=== PATIENT | female | born 1985 | race Caucasian/White ===

== ENCOUNTER 2017-01-28 23:00 | Inpatient (IN) ==
[~2017-01-28 23:00] MED LIST: Famotidine 20 MG/2 ML VIAL IVP PRN; Naloxone 0.4 MG/ML INJ IVP PRN
[2017-01-28] MEDS ORDERED: *HR* Nalbuphine 20 MG/ML AMPUL IVP PRN (23:05)
[2017-01-28] MEDS ORDERED: Ringers Solution, Lactated 1,000 ML IVC SCH (23:15)
--- NOTE | 2017-01-28 23:25 | OB/GYN History & Physical ---
Date of Encounter: 01/28/17 Time of Encounter: 23:12 Assessment and Plan (1) 38 weeks gestation of Current visit: Yes Status: Acute -Patient desires vaginal delivery and epidural. Dr. Jewell is OBGYN -Uncomplicated and previous uncomplicated -Family history of [place]. Denies HTN during . No medications -Will continue to follow BP. Most likely elevated from pain. If remains elevated , consider preeclampsia workup. Plan -Start IV fluids, monitor BP, FHR, toco -Continue cervical checks q2h, CBC, urine. -Hold off on PIH labs -Nubain for pain and clear liquid diet History of Present Illness Chief complaint: Vaginal Delivery HPI: Ms. Dudley 31F, , 38w3d admitted for vaginal delivery. Patient having more frequent contractions. She is currently 5cm and 90% effaced. Other than contraction pain, she has no other complications. Denies HTN during her . Denies smoking, drinking or drug use. Dr. Jewell is OBGYN. A positive. GBS negative Past Med Surg Social Fam HX - Past Medical History Medical history: no medical history Psychiatric history: no psych history - Past Surgical History Surgical History: other - Social History Smoking Status: Current every day smoker Packs per day: 1/ Smokeless Tobacco Status: No Alcohol use: none Drug use: none - Family History Mother Adopted: No Living Status: Still Living Hx Family Cardiac Disorders: No Hx Family Respiratory Disorders: No Hx Family Cancer: No Hx Family GI Disorders: No Hx Family Endocrine Disorder: No Hx Family Neuromuscular Disorders: No Hx Family Neurologic Disorders: No Hx Family HEENT Disorders: No Hx Family Autoimmune Disorders: Yes (maksim's disese runs on mother's side of family, but not tested) Obstetrical History - Pregnancies : 2 Para: 1 Term: 1 Livin - History/Complications History/Complications: none Medications and Allergies Acetaminophen [Tylenol] 650 mg PO Q6HR PRN 07/26/15 [History] Vit/FA 1 tab PO DAILY #60 tablet 07/28/15 [Rx] Allergies No Known Allergies Allergy (Verified 07/26/15 07:54) Exam - Constitutional Constitutional: well developed, well nourished, no acute distress, average body habitus - HEENT HEENT: Normocephaly, Mucus Membranes Moist - Lungs Respiratory exam: CTAB - Cardiovascular Cardiovascular exam: RRR, +S1, +S2 - Abdomen Abdomen: Present: gravid, non tender - Extremities Extremities exam: normal inspection - Vagina Vagina: Present: normal moisture - Cervix Dilation: 5 (5cm per nurse) Effacement: 90 (per nurse) - Uterus Uterus exam: Present: normal size, normal contour Results All other labs normal.
[2017-01-28 23:29] LABS: Basophils # 0.1 K/mcL (0.0-0.2); Basophils % 0.4 %; Eosinophils # 0.1 K/mcL (0.0-0.6); Eosinophils % 0.4 %; Hematocrit 41.1 % (35.3-44.9); Hemoglobin 13.9 g/dL (11.5-15.4); Immature Granulocytes % 1.6 % (0-4); Immature Platelets 4.6 % (1.1-6.1); Lymphocytes # 3.5 K/mcL (0.6-4.6); Lymphocytes % 24.5 %; Mean Corpuscular HGB Conc 33.8 g/dL (31.6-35.5); Mean Corpuscular Volume 91.7 fL (83.0-100.0); Monocytes # 0.7 K/mcL (0.0-1.3); Neutrophils # 9.7 K/mcL (1.6-8.9); Platelet Count 320 K/mcL (140-400); Red Blood Count 4.48 M/mcL (3.82-4.97); Red Cell Distribution Width 13.8 % (11.5-14.5); Segmented Neutrophils % 68.1 %
[2017-01-28] MEDS ORDERED: Epidural Premix (fent/bupiv) 110 ML EP SCH (23:45)
[2017-01-28] MEDS ORDERED: *HR* Ropivacaine/PF 0.2% 10 ML AMPUL EP ONE (23:56)
[2017-01-28] MEDS ORDERED: *HR* FentaNYL (PF) 100 MCG/2 ML VIAL EP ONE (23:56)
[2017-01-28] MEDS ORDERED: EPHEDrine 50 MG/ML VIAL IVP PRN (23:56)
[2017-01-28] MEDS ORDERED: Ringers Solution, Lactated 500 ML IVC ONE (23:56)
--- NOTE | 2017-01-28 23:56 | Anesthesia Evaluation PreOp ---
Date of Encounter: 01/28/17 Time of Encounter: 23:50 - Past History Planned Operation: Labor Epidural Cardiac History: Denies any Significant Hx Pulmonary History: Denies Any Significant HX TEST CLERK History: Denies Any Significant HX Other Medical History: Denies Any Significant HX Anesthesia History: No Prior Anesthetic Complications, Past Anesthesia (Tonsils) : Yes Alcohol Use: none Drug use: none Medications and Allergies Acetaminophen [Tylenol] 650 mg PO Q6HR PRN 07/26/15 [History] Vit/FA 1 tab PO DAILY #60 tablet 07/28/15 [Rx] Allergies No Known Allergies Allergy (Verified 07/26/15 07:54) - Meds/Allergy Pre-op Review Medications Reviewed: Yes Allergies Reviewed: Yes Beta Blockers on Current Med List: No Anesthesia Results - Labs 01/28/17 23:21 Anesthesia Exam 142/85, 90, 98% Height: 1.65m Weight: 78.8kg NPO (# of Hours): >4hr Pain Scale: 10 Pain Scale Used: Numeric (1 - 10) - HEENT Pupil (Motor): Pupils equal Mallampati: II Teeth: Normal Oral Opening: Greater than 3 - TEST CLERK LOC: Oriented TEST CLERK Motor: Normal RUE, Normal LUE, Normal RLE, Normal LLE, Normal Face TEST CLERK Sensory: Normal: RUE, LUE, RLE, LLE, Face - Cardiac Rhythm: Regular Murmur: None JVD: No Carotid Bruit: No - Pulmonary Breath Sounds: bilateral Clear Respiratory Effort: Symmetrical Anesthesia Assess/Plan ASA Score: 2 Modified [place] Scale for Level of Consciousness: Cooperative, oriented, and tranquil Anesthetic Plan: Regional Autologous Blood: Yes Monitoring Plan: Standard Monitors Recovery Plan: Other
[2017-01-28] MEDS ORDERED: *HR* FentaNYL (PF) 100 MCG/2 ML VIAL ONE (23:58)
[2017-01-28] MEDS ORDERED: *HR* Ropivacaine/PF 0.2% 10 ML AMPUL ONE (23:58)
[2017-01-28] MEDS ORDERED: Epidural Premix (fent/bupiv) 110 ML EP ONE (23:58)
--- NOTE | 2017-01-29 00:20 | Anesthesia Procedures ---
Date of Encounter: 01/29/17 Time of Encounter: 00:02 Procedures: Anesthesia - Epidural/Spinal Patient ID/Chart reviewed: Yes Patient examined: Yes OB Eval: Gestational age: 38.3 OB Eval: : 2 OB Eval: Hx Para: 1 OB Eval: Contractions: Non-stressed pattern Consent Obtained: Yes Supplemental Oxygen: None/Room Air Site Prep: Aseptic Technique, Sterile prep and drape, 0.5% Chlorhexidine/Alcohol Patient position: upright Local Anesthetic: Lidocaine 1% Amount of Local Anesthetic used: 2.5 Touhy Needle Gauge: 18 Touhy Needle Depth (cm): 7 Catheter Depth at Skin (cm): 13 Test Dose (1.5% Lido + Epi): Volume given (mls): 5 Test Dose Result: Negative Loading Dose: Fentanyl (mcg): 100 Loading Dose: Other: Ropivacaine 0.2% 10mL Loading Dose Administered: Thru Catheter Infusion Med: 0.125% Bupivacaine w/ 2 mcg/ml Fentanyl Infusion Rate (mls/hr): 14 (Bolus 4mL q15min; Max 3/hr) Catheter Secured in Place: Tegaderm, Tape Interspace Used: L2-L3 Loss of Resistance (YESSY): Yes Blood: No CSF: No Paresthesia: No Procedure: x1 attempt. Patient tolerated well. Vitals + FHT's: VSS and FHR stable throughout procedure. See nursing documentation.
[2017-01-29] MEDS ORDERED: EPHEDrine 50 MG/ML VIAL ONE (00:35)
[2017-01-29] MEDS ORDERED: Oxytocin 20 units/ LR 1000 mL 20 UNIT/1,000 ML BAG IVC ONE ×3 (03:41→06:23)
--- NOTE | 2017-01-29 04:08 | OB/GYN Procedure Note ---
Delivery - Delivery Date: 01/29/17 Provider: Hudson Adame Intrapartum events: none Delivery induction: none Delivery augmentation: rupture of membranes Delivery monitor: external FHT, external uterine Anesthesia: epidural Estimated Blood Loss: 100 - Infant (s) A Delivery Date: 01/29/17 Infant Delivery Time: 03:37 Presentation: vertex Position: NANCY Route of delivery: Gender: Male Viability: Viable Pounds: 7 Ounces: 3 Weight Gram: 3370 kg at 1 minute: 9 at 5 mins: 9 Shoulder Dystocia: not encountered Specimens collected: cord blood Placenta: spontaneous Cord: nuchal cord, 3 umbilical vessels, delivered through nuchal - Repair Episiotomy: none Laceration Description: None - Complications Delivery complications: none - Disposition Mom disposition: stable in LDR disposition: stable in LDR - Comments Comments: Patient progressed to complete dilatation and had a spontaneous vaginal delivery of viable male infant. scores were 9 and 9 at 15 minutes respectively, and the weighed 7 lbs. 3 oz. The placenta delivered spontaneously and appeared intact. No episiotomy was performed, no lacerations were noted. All sponge needle and instrument counts were reported as correct. Estimated blood loss 100 mL. No shoulder dystocia was encountered. A loose nuchal cord 1 was present and the was delivered through this.
[2017-01-29] MEDS ORDERED: Acetaminophen 325 MG TABLET PO PRN (06:23)
[2017-01-29] MEDS ORDERED: Oxytocin 20 units/ LR 1000 mL 20 UNIT/1,000 ML BAG IV SCH (06:23)
[2017-01-29] MEDS ORDERED: Ibuprofen 600 MG TABLET PO PRN (07:01)
[2017-01-29] MEDS: Prenatal Vit/FA 1 EACH TABLET PO SCH (10:39)
[2017-01-29] MEDS: Ibuprofen 600 MG TABLET PO PRN (18:30)
[2017-01-30 04:14] VITALS: BP 137/84
--- NOTE | 2017-01-30 09:42 | Discharge Summary ---
Date of Encounter: 01/30/17 Time of Encounter: 09:30 - Discharge Diagnosis (1) Status post vaginal delivery Priority: Primary Status: Acute Comments: Discharge home - Discharge Medications Prescriptions: Ibuprofen [Motrin] 600 mg PO Q6HR PRN #30 tablet PRN Reason: Pain Home Medications: Acetaminophen [Tylenol] 650 mg PO Q6HR PRN 07/26/15 [History] Vit/FA 1 tab PO DAILY #60 tablet 07/28/15 [Rx] Ibuprofen [Motrin] 600 mg PO Q6HR PRN #30 tablet 01/30/17 [Rx] Allergies/Adverse Reactions: Allergies No Known Allergies Allergy (Verified 07/26/15 07:54) Data Procedures and tests throughout hospitalization: Laboratory Tests 01/28/17 23:21 WBC 14.2 H RBC 4.48 Hgb 13.9 Hct 41.1 MCV 91.7 MCH 31.0 MCHC 33.8 RDW 13.8 Plt Count 320 MPV 10.0 Immature Gran % 1.6 Seg Neutrophils % 68.1 Lymphocytes % 24.5 Monocytes % 5.0 Eosinophils % 0.4 Basophils % 0.4 Neutrophils # 9.7 H Lymphocytes # 3.5 Monocytes # 0.7 Eosinophils # 0.1 Basophils # 0.1 Immature Plt Fraction 4.6 Date of admission: 01/28/17 23:00 Primary care physician: PCP BERTO Consults: 01/29/17 06:23 Consult to Unix Manager [CONS] Routine Comment: Vaginal delivery, consult needed Discharging clinician: Jaime Honeycutt Anticipated date of discharge: 01/30/17 - Patient Status Disposition: Home, Self-Care Condition: Good Functional capacity at discharge: independent ambulation Overall status at discharge: patient is progressing back to baseline - Discharge Instructions Follow Up With: Kelsey Jewell DO [Partnered Physician] - (March 05, 2017 @ 2:30 pm) NO,PCP [Primary Care Provider] - - Diet and Activity Activity: increase activity as tolerated Diet: advance to your usual diet Hospital Course Procedures: Vaginal delivery Reason for admission: active labor Delivery: Episiotomy: none Other procedures: none complications: none Discharge diagnosis: IUP at term delivered [place] baby: male Hospital course: She is a 31-year-old female who presented to labor and delivery in active labor. Patient delivered vaginally without any complications. She was stable on hospital day #1 and was discharged home with prescription for Motrin 600 mg she will follow-up in the office in 4 weeks. Patient's condition at the time of discharge was stable Time Attestation: Total time spent providing and/or coordinating discharge services: Exam - Constitutional Vitals: Temp Pulse Resp BP Pulse Ox 97.6 F 76 16 137/84 99 01/30/17 03:00 01/30/17 03:00 01/30/17 03:00 01/30/17 03:00 01/30/17 03:00 General appearance IM: A&O X 3, no acute distress - Respiratory Respiratory exam: Present: CTAB - Cardiovascular Cardiovascular exam IM: Present: RRR - GI/Abdominal GI/Abdominal exam IM: normal bowel sounds - Uterus Position: At Umbilicus
[2017-01-30] MEDS: Ibuprofen 600 MG TABLET PO PRN (10:51)
[2017-01-30] MEDS: Prenatal Vit/FA 1 EACH TABLET PO SCH (10:52)
== END 2017-01-30 15:18 | disposition home or self-care (01) | DRG 775 ==
LOC: 1NENULAB → 1NENUOBS 01-29 06:05